=== PATIENT | female | born 1960 | race Caucasian/White ===

== ENCOUNTER 2018-08-15 15:24 | Outpatient (CLI) | payer MEDICARE ==
--- NOTE | 2018-08-15 17:42 | RAD ---
RIGHT KNEE FOUR VIEWS: History: Osteoarthritis of the right knee, right knee pain. FINDINGS: Degenerative changes are seen in the right knee joint with tricompartmental osteophyte formation and joint space narrowing. No fracture, dislocation, or bony destruction is seen. IMPRESSION: Right knee osteoarthritis. POS: OFF
== END 2018-08-15 15:25 | disposition home or self-care (01) ==
LOC: MADRAD 15:24
PROVIDERS: ATTEND Family Medicine
DX: M17.11 Unilateral primary osteoarthritis, right knee (principal)

== ENCOUNTER 2018-10-15 10:11 | Emergency (ER) | payer MEDICARE | END 2018-10-15 10:50 | disposition home or self-care (01) | LOC: MADERS 10:11 | DX: S80.02XA Contusion of left knee, initial encounter (principal); S80.01XA Contusion of right knee, initial encounter; Z79.899 Other long term (current) drug therapy; W19.XXXA Unspecified fall, initial encounter; Y92.009 Unspecified place in unspecified non-institutional (private) residence as the place of occurrence of the external cause | CPT/HCPCS: 99283 ==

== ENCOUNTER 2021-06-19 11:26 | Outpatient (CLI) | payer MEDICARE | END 2021-06-19 11:27 | disposition home or self-care (01) | LOC: MADRAD 11:26 | PROVIDERS: ATTEND Registered Nurse | DX: M79.641 Pain in right hand (principal); M25.531 Pain in right wrist ==